=== PATIENT | female | born 1955 | race Caucasian/White ===

== ENCOUNTER → 2024-03-30 15:09 | Outpatient (REF) | payer MEDICARE, OTHER, SELFPAY | LOC: WDC 15:09 | PROVIDERS: ATTENDING PHYSICIAN Obstetrics & Gynecology; FAMILY PHYSICIAN Student in an Organized Health Care Education/Training Program | DX: Z12.31 Encounter for screening mammogram for malignant neoplasm of breast (principal) | CPT/HCPCS: 77063; 77067 ==

== ENCOUNTER 2024-06-12 13:06 | Emergency (ER) | payer MEDICARE, OTHER, SELFPAY ==
[2024-06-12 13:09] VITALS: BP 146/100
--- NOTE | 2024-06-12 13:54 | ED.GENMED ---
History of Present Illness
General
Chief Complaint: Back Pain
Source: patient and spouse
Time Seen by Provider: 06/12/24 13:33
History of Present Illness
History of Present Illness:
This patient is a 69-year-old female who presents emergency department with complaints of a 'bulge' at the left posterior inferior area of her lower back that has been there for some time without change in size. However, it is intermittently
painful. Recently, she has been having episodes where she will get severe pain across her mid back right to left. This will sometimes bring her to her knees, lasts a few seconds and then goes away completely. However, on Saturday when this
happened, she was in yoga class, turned over, got severe pain, and was incontinent of urine. She has not had urinary incontinence since then. She denies perianal anesthesia, rectal incontinence, constipation, dysuria, urgency, frequency, fever,
chills, chest pain, dyspnea, nausea, vomiting, weakness, numbness, tingling, or other complaints. Patient denies recent trauma. She did stay that over a month ago she was getting out of bed and got the pain which caused her to fall onto the
ground, again pain lasted for very short period of time, she was not incontinent at that time, was able to get up again. Patient saw her doctor today and originally was scheduled for an MRI in July 08 but then was referred to the emergency
department. From time to time patient will get left-sided 'sciatica' describes back pain radiating down the posterior aspect of her left leg. This has been improving over the last several months because of her commitment to stretching and yoga.
When asked about provoking factors for the pain she says she notices it particularly when her bladder is full.
Past History
Past History
ED Past Medical History: Hypercholesterolemia, Hypothyroidism and Psychiatric
ED Past Surgical History: Orthopedic and Other (Benign breast tumor removal, partial thyroidectomy)
Social History
Tobacco: Non-smoker
Alcohol: Occasional
Drug: None
Personal:
Living: with family
Phy Exam
Physical Exam
Physical Exam:
GENERAL: Alert , in no apparent distress
EYE: pupils equal and reactive
NECK: Supple, no significant adenopathy.
ENT: o/p clr, mmm.
CARDIAC: Regular rate and rhythm .
LUNGS: Clear breath sounds bilaterally, no acute respiratory distress, no wheezes/rales/rhonchi
ABDOMEN: Soft, without focal tenderness, no r/g, no cvat
NEUROLOGICAL: Alert and oriented, no focal neuro deficits2+ patellar reflexes, motor 5/5, sens intact, neg slr.
SKIN: Warm and dry, skin intact.
MUSCULOSKELETAL: No edema, well perfused.
PSYCH: Normal and appropriate interaction.
BACK: nontender to palpation, moves about bed easily. Nl pulses le bilat. there is a marble sized palpable ?nodule/mass at left post inferior aspect st of back without overlying skin changes
Course
Orders/Labs/Results
Orders:
Orders
06/12/24 13:53
CT Abd/Pel (IV only)-[facility] only Urgent
Comment:
Reason For Exam: L post inferior back pain and palpable abnl
06/12/24 14:23
Basic Metabolic Panel Urgent
Urinalysis Reflex To Culture Urgent
Date Specimen was Collected: 06/12/24
Time Specimen was Collected: 14:09
Urine Microscopic Reflex Cult Urgent
Urine Culture Urgent
LEON Source: U
Specimen Description:
Date Specimen was Collected: 06/12/24
Time Specimen was Collected: 14:09
Abnormal Lab Results
06/12/24
14:23
Glucose 127 H mg/dl
(70-99)
Ur Occult Blood Reflex 3+ A
(Negative)
Leukocyte Esterase Rfl 1+ A
(Negative)
Urine RBC 3-6 A /HPF
(0-2)
Urine Bacteria (Reflex) Few A
(Negative)
06/12/24 14:23
Vital Signs
Initial and Last Documented VS:
Initial Vital Signs
Temp Pulse Resp BP Pulse Ox
98.3 F 62 20 146/100 99
06/12/24 13:09 06/12/24 13:09 06/12/24 13:09 06/12/24 13:09 06/12/24 13:09
Last Documented Vital Signs
Temp Pulse Resp BP Pulse Ox
98.3 F 57 18 126/73 97
06/12/24 13:09 06/12/24 16:15 06/12/24 16:15 06/12/24 16:15 06/12/24 16:15
*Critical Care Note
Total Time (30-74mins, 75-104mins- exclusive of procedures): Not Applicable
Update Note
Update Note:
Patient presents to the Emergency Department with ____palpable abnormality of left lower back, back pain, 1 episode of incontinence
Number and Complexity of Problems Addressed at the Encounter
� Chronic conditions affecting care:
� Acute Exacerbation and/or Progression of Chronic Illness:
� Differential Diagnosis includes: But not limited to cauda equina, sciatica, fatty tumor, etc. etc.
Amount and/or Complexity of Data to be Reviewed and Analyzed
� I performed an independent evaluation of and my interpretation is:
EKG:
CT:IMPRESSION:
1. Severe bilateral facet joint arthrosis at L4/L5.
2. Mildly exaggerated lumbar lordosis.
3. Small hiatal hernia.
4. Mild hepatomegaly.
5. Moderate left-sided pelvic congestion syndrome.
6. Mild diverticulosis in the sigmoid colon.
7. 1.2 cm calcified uterine leiomyoma.
Xrays:
Laboratory Studies:
Other:
� Review of other/old records reveals:
� Clinical information was obtained by an independent historian: who is bedside
� Prescriptions/Medications Considered but not given:
� Further testing considered but not performed: Patient does not meet criteria for an emergent MRI� She does not describe difficulty with urinating or defecating, she has a normal neurological exam, no sensory deficits/saddle
anesthesia, and does not note incontinence of her urine in several days.
Risk of Complications and/or Morbidity or Mortality of Patient Management
� Social determinants of health affecting care:
� Discussion with other providers (PCP, Hospitalists, Consultants, etc):
� Escalation of care including admission/observation vs risk of discharge considered:5:40 PM patient remains comfortable, no pain, no neurocomplaints or findings, no incontinence, no perianal anesthesia, etc. Motor strength
intact. No 'red flag' findings on history or physical to suggest more worrisome etiology. Patient given copy of her CAT scan with all the incidental findings and asked to follow-up with her primary care doctor concerning. She is in the process of
arranging for an MRI of her spine likely to be performed here tomorrow and outpatient MRI. Discussed with patient importance of follow-up and reasons to return to the ER.
ED Attending Note
-
Portions of this chart may have been created with voice recognition software.� Occasional wrong word or��sound alike� substitutions may have occurred due to the inherent limitations of voice recognition software.
Discharge Plan
Departure
Patient Disposition: Home (Routine Discharge)
Date of Disposition: 06/12/24
Time of Disposition: 17:48
Patient with high blood pressure during this ER visit?: Yes
Discharge Problem:
Back pain
Instructions: Low Back Pain (DC)
Prescriptions:
No Action
calcium carbonate [Oyster Shell Calcium 500] 500 MG tablet
DAILY
CITRUCEL
DAILY
Lexapro
10 mg DAILY
Womens Ultra Ten Vitamin
DAILY
Referrals:
Brenda Webb MD [Family Provider] - Follow up in 2-3 days
Activity Restrictions/Additional Instructions:
IF YOU DEVELOP NUMBNESS, TINGLING, INCONTINENCE, DIFFICULTY URINATING, WEAKNESS, ABDOMINAL PAIN, NEW OR WORSENING BACK PAIN, FEVER, OR OTHER WORRISOME SIGNS, PLEASE RETURN TO THE ER IMMEDIATELY.
Interventions
Interventions:
*Risk Screen - Suicide Last Done: 06/12/24 13:09
*General Assessment Last Done: 06/12/24 13:09
*Neglect/Abuse Screening Last Done: 06/12/24 16:15
*ED COVID-19 Vaccine History Last Done: 06/12/24 16:15
ED-Musculoskeletal Assessment Last Done: 06/12/24 16:15
Discharge Date and Time
Print Language: URDU
[2024-06-12 14:44] LABS: Blood Urea Nitrogen 12 mg/dl (7-17); Calcium 9.4 mg/dl (8.4-10.2); Carbon Dioxide 30 mmol/L (22-30); Chloride 102 mmol/L (98-107); Glucose 127 mg/dl (70-99); Potassium 3.9 mmol/L (3.5-5.1); Sodium 140 mmol/L (135-145); Urine Albumin Negative (Neg - Trace); Urine Bilirubin Negative (Negative); Urine Character Clear (Clear); Urine Color Yellow; Urine Glucose Negative (Negative); Urine Ketone Negative (Negative); Urine Leukocyte 1+ (Negative); Urine Nitrite Negative (Negative); Urine Occult Blood 3+ (Negative); Urine Urobilinogen Negative (Neg - 1+); eGFR > 60.00
[2024-06-12 15:02] LABS: Urine Squamous Cell 0-2 /LPF (Few)
[2024-06-12 15:03] LABS: Urine Bacteria Few (Negative)
[2024-06-12 16:15] VITALS: BP 126/73
== END 2024-06-12 18:29 | disposition home or self-care (01) ==
LOC: EMR 13:06
PROVIDERS: EMERGENCY PHYSICIAN Emergency Medicine; FAMILY PHYSICIAN Emergency Medicine
DX: M54.9 Dorsalgia, unspecified (principal); R32 Unspecified urinary incontinence; R03.0 Elevated blood-pressure reading, without diagnosis of hypertension; M47.816 Spondylosis without myelopathy or radiculopathy, lumbar region; K44.9 Diaphragmatic hernia without obstruction or gangrene; R16.0 Hepatomegaly, not elsewhere classified; N94.89 Other specified conditions associated with female genital organs and menstrual cycle; K57.30 Diverticulosis of large intestine without perforation or abscess without bleeding; D25.9 Leiomyoma of uterus, unspecified; E03.9 Hypothyroidism, unspecified; E78.00 Pure hypercholesterolemia, unspecified
CPT/HCPCS: 99284; 74177; 80048; 81003; 81015; 87086; Q9967

== ENCOUNTER → 2024-06-13 09:13 | Outpatient (REF) | payer MEDICARE, OTHER, SELFPAY | LOC: MRI 09:13 | PROVIDERS: ATTENDING PHYSICIAN Emergency Medicine | DX: M54.50 Low back pain, unspecified (principal); N39.498 Other specified urinary incontinence; R29.2 Abnormal reflex | CPT/HCPCS: 72148 ==

== ENCOUNTER → 2025-04-15 13:11 | Outpatient (REF) | payer MEDICARE, OTHER, SELFPAY | LOC: WDC 13:11 | PROVIDERS: ATTENDING PHYSICIAN Obstetrics & Gynecology; FAMILY PHYSICIAN Emergency Medicine | DX: Z12.31 Encounter for screening mammogram for malignant neoplasm of breast (principal) | CPT/HCPCS: 77063; 77067 ==

== ENCOUNTER → 2025-05-07 13:42 | Outpatient (REF) | payer MEDICARE, OTHER, SELFPAY ==
[2025-05-07 15:38] LABS: Blood Urea Nitrogen 14 mg/dl (7-17); Calcium 9.4 mg/dl (8.4-10.2); Carbon Dioxide 28 mmol/L (22-30); Chloride 105 mmol/L (98-107); Glucose 94 mg/dl (70-99); Potassium 3.8 mmol/L (3.5-5.1); Sodium 139 mmol/L (135-145); eGFR > 60.00
== END ==
LOC: REG 13:42
PROVIDERS: ATTENDING PHYSICIAN Urology; FAMILY PHYSICIAN Emergency Medicine
DX: R31.29 Other microscopic hematuria (principal)
CPT/HCPCS: 36415; 80048

== ENCOUNTER → 2025-05-13 13:53 | Outpatient (REF) | payer MEDICARE, OTHER, SELFPAY | LOC: RAD 13:53 | PROVIDERS: ATTENDING PHYSICIAN Urology; FAMILY PHYSICIAN Emergency Medicine | DX: R31.29 Other microscopic hematuria (principal) | CPT/HCPCS: 74178; Q9967 ==